=== PATIENT | female | born 1985 | race Caucasian/White ===

== ENCOUNTER 2017-06-14 15:25 | Emergency (ER) | payer OTHER, MEDICAID ==
[~2017-06-14] VITALS: Ht 170.2 cm; Wt 81.6 kg
[2017-06-14] MEDS ORDERED: HYDROcodone/APAP 5/325MG 1 TAB TABLET PO ONE (15:45)
[2017-06-14] MEDS ORDERED: IBUPROFEN 400 MG TABLET. PO ONE (15:45)
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
[2017-06-14] MEDS ORDERED: HYDR-971 PO (16:59)
[2017-06-14] MEDS ORDERED: ONDA4TAB10 PO (16:59)
[2017-06-14 17:09] VITALS: BP 148/106
== END 2017-06-14 17:09 | disposition home or self-care (01) ==
LOC: ER 15:25
DX: S16.1XXA Strain of muscle, fascia and tendon at neck level, initial encounter (principal); S00.83XA Contusion of other part of head, initial encounter; S09.90XA Unspecified injury of head, initial encounter; J32.9 Chronic sinusitis, unspecified; J45.909 Unspecified asthma, uncomplicated; I10 Essential (primary) hypertension; M41.9 Scoliosis, unspecified; V43.52XA Car driver injured in collision with other type car in traffic accident, initial encounter; Y93.I9 Activity, other involving external motion; Y92.410 Unspecified street and highway as the place of occurrence of the external cause; Y99.8 Other external cause status
CPT/HCPCS: 70450; 72125; 99284-25